=== PATIENT | female | born 1945 | race Caucasian/White ===

== ENCOUNTER 2019-02-14 11:03 | Emergency (ER) | payer MEDICARE, OTHER ==
[~2019-02-14] VITALS: Ht 172.7 cm; Wt 100.0 kg
[2019-02-14] MEDS ORDERED: PERCOCET1 TA2 PO (13:45)
[2019-02-14 13:54] VITALS: BP 143/90
== END 2019-02-14 14:07 | disposition home or self-care (01) ==
LOC: ED 11:03
PROC: 2W3CX1Z Immobilization of Right Lower Arm using Splint (ICD-10-PCS; principal; 2019-02-14)
DX: S52.501A Unspecified fracture of the lower end of right radius, initial encounter for closed fracture (principal); W18.30XA Fall on same level, unspecified, initial encounter; Y92.009 Unspecified place in unspecified non-institutional (private) residence as the place of occurrence of the external cause